=== PATIENT | female | born 1995 | race Two or more races ===

== ENCOUNTER 2024-04-11 13:23 | Emergency (ER) | payer OTHER ==
[~2024-04-11] VITALS: Ht 160 cm; Wt 79.4 kg
[2024-04-11] MEDS ORDERED: TOPROL XL100 M1 (13:37)
[2024-04-11] MEDS ORDERED: ENDOMETRIN100 MG (13:38)
[2024-04-11] MEDS ORDERED: PRENA1 TRUE CO1 EACH (13:38)
[2024-04-11 15:13] LABS: HEMATOCRIT 34.8 % (36.0-45.00); HEMOGLOBIN 11.9 g/dL (12.0-15.00); MEAN CELL VOLUME 81.1 fL (80.00-100.00); MEAN CORPUSCULAR HEMOGLOBIN 27.8 pg (27.00-32.0); MEAN CORPUSCULAR HGB CONC 34.3 g/dl (32.0-36.0); PLATELET COUNT 326 K/uL (150-450); RED BLOOD COUNT 4.29 M/uL (4.00-6.00); RED CELL DISTRIBUTION WIDTH 13.7 % (11.5-14.5)
== END 2024-04-11 16:20 | disposition home or self-care (01) ==
LOC: ER 13:25
PROVIDERS: General Practice
DX: O20.9 Hemorrhage in early pregnancy, unspecified (principal); O10.911 Unspecified pre-existing hypertension complicating pregnancy, first trimester; Z3A.10 10 weeks gestation of pregnancy; Z88.0 Allergy status to penicillin

== ENCOUNTER → 2024-04-16 09:31 | Outpatient (CLI) | payer OTHER ==
[~2024-04-16 09:31] MED LIST: ENDOMETRIN100 MG; PRENA1 TRUE CO1 EACH; TOPROL XL100 M1
== END | disposition home or self-care (01) ==
LOC: PRENATAL 09:31
PROVIDERS: ATTEND Obstetrics & Gynecology Maternal & Fetal Medicine
DX: O36.80X0 Pregnancy with inconclusive fetal viability, not applicable or unspecified (principal); Z36.82 Encounter for antenatal screening for nuchal translucency; O10.019 Pre-existing essential hypertension complicating pregnancy, unspecified trimester; Z14.8 Genetic carrier of other disease; Z3A.11 11 weeks gestation of pregnancy

== ENCOUNTER 2024-05-31 02:01 | Inpatient (IN) | payer OTHER ==
[~2024-05-31] VITALS: Ht 160 cm; Wt 83.0 kg
[2024-05-31] MEDS ORDERED: TOPROL XL50 M1 PO (02:20)
[2024-05-31] MEDS ORDERED: ECOTRIN81 MG PO (02:20)
--- NOTE | 2024-05-31 02:22 | NUR ---
PACIENTE ALERTA Y ORIENTADA X3 CON 17 WEEKS REFIERE QUE SE ENCONTRABA DURMIENDO CUANDO SINTIO HANNAH DESCARGA VAGINAL, VERBALIZA "QUE PARECIA LINH CURTIS NO". SE ESTIMAN VITALES Y SE UBICA. NO REFIERE DOLOR PELVICO AL MOMENTO DEL TRIAGE NI SNAGRADO .
--- NOTE | 2024-05-31 02:39 | NUR ---
SE EDUCA PACIENTE SOBRE EL TX MEDICO Y ESTA REFIERE ENTENDER. SE [facility] Y SE ENVIAN. SE NOTIFICA SONOGRAMA MS. ERENDIRA A LAS 2:38AM. PENDIENTA A U/A
[2024-05-31 02:51] LABS: HEMATOCRIT 33.7 % (36.0-45.00); HEMOGLOBIN 11.8 g/dL (12.0-15.00); MEAN CELL VOLUME 80.8 fL (80.00-100.00); MEAN CORPUSCULAR HEMOGLOBIN 28.1 pg (27.00-32.0); MEAN CORPUSCULAR HGB CONC 34.9 g/dl (32.0-36.0); PLATELET COUNT 305 K/uL (150-450); RED BLOOD COUNT 4.18 M/uL (4.00-6.00); RED CELL DISTRIBUTION WIDTH 14.2 % (11.5-14.5)
[2024-05-31 03:33] LABS: URINE APPEARANCE Clear; URINE BILIRRUBIN Negative (NEGATIVE); URINE BLOOD NHT; URINE COLOR Yellow; URINE GLUCOSE Negative (NEGATIVE); URINE KETONE Negative (NEGATIVE); URINE LEUKOCYTE Negative; URINE NITRATE Negative; URINE PROTEIN Negative (NEGATIVE); URINE UROBILINOGEN 0.2 E.U./dl
[2024-05-31 03:36] LABS: URINE BACTERIA 15.1 uL (0.0-1933); URINE RBC 7.1 uL (0.0-20.8); URINE WBC 3.7 uL (0.0-23.2)
[2024-05-31] MEDS ORDERED: RINGERS SOLUTION,LACTATED 1,000 ML IV SCH (05:15)
--- NOTE | 2024-05-31 05:17 | NUR ---
SE [facility] PENDIENTE Y SE CANALIZA Y SE COLOCA IVFS.
[2024-05-31 05:47] VITALS: BP 133/89
[2024-05-31 06:01] LABS: INR 0.95; PROTHROMBIN TIME 10.4 SECONDS (9.0-11.5)
[2024-05-31 07:35] VITALS: BP 128/86; O2SAT 99
[2024-05-31 11:38] VITALS: BP 135/71; O2SAT 99
[2024-05-31 15:32] VITALS: BP 128/71
[2024-05-31] MEDS ORDERED: METOPROLOL SUCCINATE 50 MG TAB.SR.24H PO SCH (17:06)
[2024-05-31] MEDS ORDERED: PNV,CALCIUM 72/IRON/FOLIC ACID 1 TAB TABLET PO SCH (17:07)
[2024-05-31 19:48] VITALS: BP 127/83
[2024-05-31 23:16] VITALS: BP 124/70
[2024-06-01] VITALS (7 sets, daily range): BP systolic 116–137; BP diastolic 72–87
[2024-06-01] MEDS ORDERED: ACETAMINOPHEN 500 MG GEL..CAP PO PRN (11:45)
[2024-06-02 03:43] VITALS: BP 125/87
[2024-06-02 07:40] VITALS: BP 121/72
[2024-06-02 12:10] VITALS: BP 121/76
[2024-06-02 15:28] VITALS: BP 127/86
== END 2024-06-02 15:56 | disposition home or self-care (01) | DRG 831 ==
LOC: ER 02:03 → LDR 05:04
PROVIDERS: General Practice; ADMIT Student in an Organized Health Care Education/Training Program; ATTEND Student in an Organized Health Care Education/Training Program
PROC: 4A1HXCZ Monitoring of Products of Conception, Cardiac Rate, External Approach (ICD-10-PCS; principal; 2024-05-31)
PROC: BY4CZZZ Ultrasonography of Second Trimester, Single Fetus (ICD-10-PCS; 2024-05-31)
PROC: BY4CZZZ Ultrasonography of Second Trimester, Single Fetus (ICD-10-PCS; 2024-06-01)
PROC: BU4CZZZ Ultrasonography of Uterus and Ovaries (ICD-10-PCS; 2024-06-01)
DX: O42.012 Preterm premature rupture of membranes, onset of labor within 24 hours of rupture, second trimester (principal); O60.02 Preterm labor without delivery, second trimester; O41.02X0 Oligohydramnios, second trimester, not applicable or unspecified; O26.842 Uterine size-date discrepancy, second trimester; O26.22 Pregnancy care for patient with recurrent pregnancy loss, second trimester; Z3A.17 17 weeks gestation of pregnancy; Z20.822 Contact with and (suspected) exposure to COVID-19

== ENCOUNTER 2024-06-17 22:04 | Inpatient (IN) | payer OTHER ==
[~2024-06-17] VITALS: Ht 160 cm; Wt 82.6 kg
[2024-06-17 21:15] VITALS: BP 121/80
[~2024-06-17 22:04] MED LIST changes: +ECOTRIN81 MG PO; +TOPROL XL50 M1 PO
[2024-06-17] MEDS ORDERED: RINGERS SOLUTION,LACTATED 1,000 ML IV SCH (22:15)
[2024-06-17 23:10] LABS: URINE APPEARANCE Clear; URINE BILIRRUBIN Negative (NEGATIVE); URINE BLOOD Small; URINE COLOR Yellow; URINE GLUCOSE Negative (NEGATIVE); URINE KETONE Negative (NEGATIVE); URINE LEUKOCYTE Trace; URINE NITRATE Negative; URINE PROTEIN Negative (NEGATIVE); URINE UROBILINOGEN 0.2 E.U./dl
[2024-06-17 23:12] LABS: HEMATOCRIT 36.4 % (36.0-45.00); HEMOGLOBIN 12.5 g/dL (12.0-15.00); MEAN CELL VOLUME 80.8 fL (80.00-100.00); MEAN CORPUSCULAR HEMOGLOBIN 27.7 pg (27.00-32.0); MEAN CORPUSCULAR HGB CONC 34.3 g/dl (32.0-36.0)
[2024-06-17 23:13] LABS: URINE BACTERIA 36.5 uL (0.0-1933); URINE EPITHELIAL CELLS 5.4 uL (0.0-38.8); URINE WBC 28.8 uL (0.0-23.2)
[2024-06-17 23:17] LABS: PLATELET COUNT 339 K/uL (150-450)
[2024-06-17 23:19] VITALS: BP 113/77
[2024-06-17 23:27] LABS: URINE CAST 0.15 uL (0.0-1.40)
[2024-06-17 23:33] LABS: INR 0.94; PARTIAL THROMBOPLASTIN TIME 27.1 SECONDS (22.0-34.0); PROTHROMBIN TIME 10.3 SECONDS (9.0-11.5)
[2024-06-17 23:38] LABS: ALBUMIN 3.1 gm/dL (3.4-5.0); BILIRUBIN TOTAL 0.24 mg/dL (0.3-1.2); CALCIUM 9.7 mg/dL (8.5-10.1); CREATININE SERUM 0.66 mg/dL (0.55-1.02); GFR 106.64; GLOBULINA 4.1 G/DL (2.4-3.5); POTASSIUM 4.46 mEq/L (3.5-5.1); TOTAL PROTEIN 7.2 gm/dL (6.4-8.2)
[2024-06-18] VITALS (9 sets, daily range): BP systolic 113–137; BP diastolic 61–89; O2SAT 99
[2024-06-18] MEDS ORDERED: hydrOXYzine PAMOATE 50 MG CAPSULE PO NR ×2 (08:00)
[2024-06-18] MEDS ORDERED: CLINDAMYCIN PHOSPHATE 150 MG/ML (900mg) IV SCH (09:00)
[2024-06-18] MEDS ORDERED: GENTAMICIN SULFATE 40 MG/ML VIAL IV SCH (09:00)
[2024-06-18] MEDS ORDERED: MISOPROSTOL 25 MCG/4 ML GEL.W.APPL VAG ONE (12:00)
[2024-06-18] MEDS ORDERED: ACETAMINOPHEN 500 MG GEL..CAP PO PRN (14:30)
[2024-06-18] MEDS ORDERED: OXYTOCIN 1,000 ML IV SCH (14:45)
[2024-06-19 00:54] VITALS: BP 114/75
[2024-06-19 06:39] LABS: HEMATOCRIT 31.3 % (36.0-45.00); HEMOGLOBIN 10.7 g/dL (12.0-15.00); MEAN CELL VOLUME 81.8 fL (80.00-100.00); MEAN CORPUSCULAR HEMOGLOBIN 27.9 pg (27.00-32.0); MEAN CORPUSCULAR HGB CONC 34.1 g/dl (32.0-36.0); PLATELET COUNT 307 K/uL (150-450); RED BLOOD COUNT 3.82 M/uL (4.00-6.00); RED CELL DISTRIBUTION WIDTH 13.8 % (11.5-14.5)
[2024-06-19 08:25] VITALS: BP 120/79
[2024-06-19] MEDS ORDERED: PNV,CALCIUM 72/IRON/FOLIC ACID 1 TAB TABLET PO SCH (09:00)
== END 2024-06-19 14:05 | disposition home or self-care (01) | DRG 805 ==
LOC: OBS/DEL 22:04 → LDR 06-18 11:17 → OB/GYN 06-18 16:05
PROVIDERS: Obstetrics & Gynecology; ADMIT Student in an Organized Health Care Education/Training Program; ATTEND Student in an Organized Health Care Education/Training Program
PROC: 10E0XZZ Delivery of Products of Conception, External Approach (ICD-10-PCS; principal; 2024-06-18)
PROC: 4A1HXCZ Monitoring of Products of Conception, Cardiac Rate, External Approach (ICD-10-PCS; 2024-06-18)
PROC: BY4CZZZ Ultrasonography of Second Trimester, Single Fetus (ICD-10-PCS; 2024-06-18)
PROC: BU4CZZZ Ultrasonography of Uterus and Ovaries (ICD-10-PCS; 2024-06-18)
PROC: 3E033VJ Introduction of Other Hormone into Peripheral Vein, Percutaneous Approach (ICD-10-PCS; 2024-06-18)
PROC: 3E0P7VZ Introduction of Hormone into Female Reproductive, Via Natural or Artificial Opening (ICD-10-PCS; 2024-06-18)
DX: O41.1220 Chorioamnionitis, second trimester, not applicable or unspecified (principal); O60.02 Preterm labor without delivery, second trimester; Z37.1 Single stillbirth; O60.12X0 Preterm labor second trimester with preterm delivery second trimester, not applicable or unspecified; O41.02X0 Oligohydramnios, second trimester, not applicable or unspecified; O26.852 Spotting complicating pregnancy, second trimester; O41.1420 Placentitis, second trimester, not applicable or unspecified; O26.842 Uterine size-date discrepancy, second trimester; Z3A.20 20 weeks gestation of pregnancy; Z20.822 Contact with and (suspected) exposure to COVID-19

== ENCOUNTER 2024-11-24 13:28 | Outpatient (CLI) | payer OTHER | END 2024-11-24 13:29 | disposition home or self-care (01) | LOC: PRENATAL 13:28 | PROVIDERS: ATTEND Obstetrics & Gynecology Maternal & Fetal Medicine | DX: O36.80X0 Pregnancy with inconclusive fetal viability, not applicable or unspecified (principal); Z36.82 Encounter for antenatal screening for nuchal translucency; O10.019 Pre-existing essential hypertension complicating pregnancy, unspecified trimester; Z3A.12 12 weeks gestation of pregnancy ==

== ENCOUNTER → 2024-11-24 14:25 | Outpatient (CLI) | payer OTHER | END | disposition home or self-care (01) | LOC: LAB 14:25 | PROVIDERS: ATTEND Obstetrics & Gynecology Maternal & Fetal Medicine | DX: O26.879 Cervical shortening, unspecified trimester (principal); O09.219 Supervision of pregnancy with history of pre-term labor, unspecified trimester ==

== ENCOUNTER 2024-12-14 07:52 | Inpatient (IN) | payer OTHER ==
[~2024-12-14] VITALS: Ht 160 cm; Wt 83.9 kg
--- NOTE | 2024-12-14 07:58 | NUR ---
SE RECIBE PACIENTE ALERTA Y ORIENTADA X3 REFIERE VENIR POR SANGRADO CON PRESENCIA DE COGULO EL MILLIE DE TERRANCE Y LEVE DOLOR PELVICO. PACIENTE REFIERE SEGUIR TENIENDO SANGRADO CON APARIENCIA ROSADA. TIENE 15 SEMANAS DE EMBARAZO
--- NOTE | 2024-12-14 08:42 | NUR ---
SE ORIENTA A PTE SOBRE TX MEDICO ORDENADO POR . SE REALIZA HERMAN DE [facility] TOPHER ORDEN MEDICA Y BAJO MEDIDAS ASEPTICAS. PTE PENDIENTE A ESTUDIO, SE NOTIFICA.
[2024-12-14 09:11] LABS: HEMATOCRIT 36.2 % (36.0-45.00); HEMOGLOBIN 12.6 g/dL (12.0-15.00); MEAN CELL VOLUME 80.3 fL (80.00-100.00); MEAN CORPUSCULAR HGB CONC 34.9 g/dl (32.0-36.0); PLATELET COUNT 278 K/uL (150-450); RED BLOOD COUNT 4.51 M/uL (4.00-6.00); RED CELL DISTRIBUTION WIDTH 15.4 % (11.5-14.5)
[2024-12-14 14:24] VITALS: BP 126/68
[2024-12-14 15:20] VITALS: BP 123/83
[2024-12-14] MEDS ORDERED: RINGERS SOLUTION,LACTATED 1,000 ML IV SCH (16:15)
[2024-12-14 16:52] LABS: CHLORIDE 106 mmol/L (98-107); POTASSIUM 4.03 mEq/L (3.5-5.1); SODIUM 139 mmol/L (136-145)
[2024-12-14 16:57] LABS: INR < 0.93; PARTIAL THROMBOPLASTIN TIME 27.9 SECONDS (22.0-34.0); PROTHROMBIN TIME 10.1 SECONDS (9.0-11.5)
[2024-12-14 17:02] LABS: ALBUMIN 3.2 gm/dL (3.4-5.0); ALKALINE PHOSPHATASE 84 U/L (50-136); ALT/SGPT 25 U/L (12-78); ANION GAP 8 (10.0-20.0); AST/SGOT 13 U/L (15-37); BLOOD UREA NITROGEN 8 mg/dL (7-18); BUN CREA RATIO 13 (7.0-25.0); CALCIUM 9.3 mg/dL (8.5-10.1); CARBON DIOXIDE 29 mEq/L (21-32); CREATININE SERUM 0.62 mg/dL (0.55-1.02); GLOBULINA 3.8 G/DL (2.4-3.5); GLUCOSE FASTING 90 mg/dL (65-100); OSMOLALITY SERUM 275 MOSM/KG (275-295)
[2024-12-14 17:07] LABS: BILIRUBIN TOTAL < 0.10 mg/dL (0.3-1.2)
[2024-12-14] MEDS ORDERED: SODIUM CHLORIDE 0.45 % 1,000 ML IV SCH (17:13)
[2024-12-14 19:11] VITALS: BP 113/75
[2024-12-14 23:25] VITALS: BP 111/74
[2024-12-15 00:15] LABS: PH,URINE 6.5 (5.0-8.0); URINE APPEARANCE Clear; URINE BILIRRUBIN Negative (NEGATIVE); URINE BLOOD Small; URINE COLOR Yellow; URINE GLUCOSE Negative (NEGATIVE); URINE KETONE Trace (NEGATIVE); URINE LEUKOCYTE Moderate; URINE NITRATE Negative; URINE PROTEIN 30 (NEGATIVE)
[2024-12-15 00:18] LABS: URINE BACTERIA 1690.3 uL (0.0-1933); URINE RBC 7.6 uL (0.0-20.8); URINE WBC 883.5 uL (0.0-23.2)
[2024-12-15 00:45] LABS: URINE CAST 0.29 uL (0.0-1.40)
[2024-12-15 03:50] VITALS: BP 117/78
[2024-12-15 06:01] VITALS: BP 125/81; O2SAT 99
[2024-12-15] MEDS ORDERED: AZITHROMYCIN1 GM PO (09:06)
[2024-12-15] MEDS ORDERED: MACROBID 100 M100 MG PO (09:06)
== END 2024-12-15 10:52 | disposition home or self-care (01) | DRG 832 ==
LOC: ER 07:53 → LDR 13:42
PROVIDERS: General Practice; Obstetrics & Gynecology; ADMIT Student in an Organized Health Care Education/Training Program; ATTEND Student in an Organized Health Care Education/Training Program
PROC: 4A1HXCZ Monitoring of Products of Conception, Cardiac Rate, External Approach (ICD-10-PCS; principal; 2024-12-14)
PROC: BY4CZZZ Ultrasonography of Second Trimester, Single Fetus (ICD-10-PCS; 2024-12-14)
PROC: BU4CZZZ Ultrasonography of Uterus and Ovaries (ICD-10-PCS; 2024-12-14)
DX: O42.012 Preterm premature rupture of membranes, onset of labor within 24 hours of rupture, second trimester (principal); O41.02X0 Oligohydramnios, second trimester, not applicable or unspecified; O26.842 Uterine size-date discrepancy, second trimester; O26.852 Spotting complicating pregnancy, second trimester; Z3A.15 15 weeks gestation of pregnancy

== ENCOUNTER 2024-12-15 15:51 | Inpatient (IN) | payer OTHER ==
[~2024-12-15] VITALS: Ht 160 cm; Wt 83.9 kg
[~2024-12-15 15:51] MED LIST changes: +AZITHROMYCIN1 GM PO; +MACROBID 100 M100 MG PO
--- NOTE | 2024-12-15 16:05 | NUR ---
PTE ALERTA Y ORIENTADA X3 QUIEN REFIERE VENIR POR SANGRADO Y SENTIR CONTRACCIONES. PTE CON 15 SEMANAS DE EMBARAZO. REFIERE LI SALIDO HOY [address] PEREZ INFORMAR DE REGRESAR SI SEGUIA CON SANGRADO Y CONTRACCIONES.
[2024-12-15] MEDS ORDERED: ONDANSETRON HCL 2 MG/ML VIAL IV ONE (16:45)
[2024-12-15] MEDS ORDERED: MORPHINE SULFATE 4 MG/ML VIAL IV ONE (16:45)
[2024-12-15] MEDS ORDERED: 0.9 % SODIUM CHLORIDE 1,000 ML IV ONE (16:45)
[2024-12-15] MEDS ORDERED: FAMOtidine 10 MG/ML (4ML VIAL) IV ONE (16:45)
[2024-12-15 17:06] LABS: HEMATOCRIT 37.3 % (36.0-45.00); HEMOGLOBIN 11.9 g/dL (12.0-15.00); MEAN CELL VOLUME 81.7 fL (80.00-100.00); MEAN CORPUSCULAR HEMOGLOBIN 26.1 pg (27.00-32.0); PLATELET COUNT 248 K/uL (150-450); RED BLOOD COUNT 4.57 M/uL (4.00-6.00); RED CELL DISTRIBUTION WIDTH 15.3 % (11.5-14.5)
[2024-12-15 17:28] LABS: INR < 0.93; PARTIAL THROMBOPLASTIN TIME 27.1 SECONDS (22.0-34.0); PROTHROMBIN TIME 10.1 SECONDS (9.0-11.5)
[2024-12-15] MEDS ORDERED: ONDANSETRON HCL 2 MG/ML VIAL ONE (17:43)
[2024-12-15] MEDS ORDERED: FAMOTIDINE/PF 20 MG/2 ML VIAL ONE (17:44)
[2024-12-15 17:47] LABS: ALBUMIN 3.1 gm/dL (3.4-5.0); BILIRUBIN TOTAL 0.2 mg/dL (0.3-1.2); CALCIUM 9.3 mg/dL (8.5-10.1); CREATININE SERUM 0.65 mg/dL (0.55-1.02); GFR 107.76; GLOBULINA 4.4 G/DL (2.4-3.5); POTASSIUM 4.03 mEq/L (3.5-5.1); TOTAL PROTEIN 7.5 gm/dL (6.4-8.2)
--- NOTE | 2024-12-15 17:47 | NUR ---
MS JOSEE ORIENTA SOBRE TRATAMIENTO MEDICO. SE CANALIZA VENA Y SE [facility] BAJO MEDIDAS ASEPTICAS. SE ADMINISTRA MEDICAMENTO POR ORDEN MEDICA. PENDIENTE SONOGRAMA
[2024-12-15] MEDS ORDERED: CHLORHEXIDINE GLUCONATE 120 ML BOTTLE TOP ONE (20:49)
[2024-12-15 20:52] VITALS: BP 131/77
[2024-12-15] MEDS ORDERED: MORPHINE SULFATE 4 MG/ML VIAL IV PRN (21:45)
[2024-12-15] MEDS ORDERED: CLINDAMYCIN PHOSPHATE 150 MG/ML (300mg) IV SCH (22:30)
[2024-12-15 23:30] VITALS: BP 123/72
[2024-12-16 03:16] VITALS: BP 131/69
[2024-12-16] MEDS ORDERED: ACETAMINOPHEN 500 MG GEL..CAP PO ONE (06:15)
[2024-12-16 07:40] VITALS: BP 126/72
[2024-12-16 11:20] VITALS: BP 131/87
[2024-12-16] MEDS ORDERED: POVIDONE-IODINE 118 ML BOTT TOP ONE (12:28)
[2024-12-16] MEDS ORDERED: OXYTOCIN 10 UNITS/ML VIAL ONE (13:05)
[2024-12-16] MEDS ORDERED: CARBOPROST TROMETHAMINE 250 MCG/ML AMPUL IM ONE (13:06)
[2024-12-16] MEDS ORDERED: PROMETHAZINE HCL 50 MG/ML AMPUL IM NR (14:30)
[2024-12-16] MEDS ORDERED: MORPHINE SULFATE 4 MG/ML CARTRIDGE IV PRN (14:30)
[2024-12-16] MEDS ORDERED: AZITHROMYCIN 500 MG TABLET PO NR (15:00)
[2024-12-16] MEDS ORDERED: CLINDAMYCIN PHOSPHATE 150 MG/ML (300mg) ONE (17:43)
[2024-12-16 20:25] VITALS: BP 128/73; O2SAT 100
== END 2024-12-16 18:30 | disposition home or self-care (01) | DRG 806 ==
LOC: ER 15:52 → LDR 20:09 → SEC-K 20:09 → LDR 20:37 → O/R 12-16 13:53
PROVIDERS: General Practice; ADMIT Student in an Organized Health Care Education/Training Program; ATTEND Student in an Organized Health Care Education/Training Program
PROC: 10E0XZZ Delivery of Products of Conception, External Approach (ICD-10-PCS; 2024-12-15)
PROC: 4A1HXFZ Monitoring of Products of Conception, Cardiac Rhythm, External Approach (ICD-10-PCS; 2024-12-15)
PROC: 3E033VJ Introduction of Other Hormone into Peripheral Vein, Percutaneous Approach (ICD-10-PCS; 2024-12-16)
PROC: 10D17Z9 Manual Extraction of Products of Conception, Retained, Via Natural or Artificial Opening (ICD-10-PCS; principal; 2024-12-16 15:30)
DX: O35.8XX0 Maternal care for other (suspected) fetal abnormality and damage, not applicable or unspecified (principal); O72.0 Third-stage hemorrhage; Z37.1 Single stillbirth; O32.1XX0 Maternal care for breech presentation, not applicable or unspecified; O03.4 Incomplete spontaneous abortion without complication; Z3A.15 15 weeks gestation of pregnancy